=== PATIENT | female | born 1950 | race Caucasian/White ===

== ENCOUNTER → 2016-07-28 | Outpatient (CLI) | payer OTHER ==
[~2016-07-28] MED LIST: LIPITOR40 MG PO; VITAMIN D32000 UNI1 PO
== END | disposition home or self-care (01) ==
LOC: AMB 13:30
DX: C18.4 Malignant neoplasm of transverse colon (principal); Z80.0 Family history of malignant neoplasm of digestive organs; J44.9 Chronic obstructive pulmonary disease, unspecified; E78.5 Hyperlipidemia, unspecified
CPT/HCPCS: 86850; 86900; 86901; 99213

== ENCOUNTER 2016-07-29 08:06 | Inpatient (IN) | payer OTHER ==
[~2016-07-29] VITALS: Ht 154.9 cm; Wt 71.5 kg
[2016-07-29 08:53] VITALS: BP 132/75
[2016-07-29 14:13] VITALS: BP 138/70
[2016-07-29 16:26] VITALS: BP 116/67
[2016-07-29 17:52] VITALS: BP 116/67
[2016-07-29 19:38] VITALS: BP 128/70
[2016-07-29 23:43] VITALS: BP 121/68
[2016-07-30 04:04] VITALS: BP 113/59
[2016-07-30 07:35] VITALS: BP 120/65
[2016-07-30 07:39] LABS: HEMATOCRIT 31.1 % (36.0-46.0); MCH 28.7 PG (29.0-34.0); MCHC 32.8 G/DL (30.0-36.0); MCV 87.6 FL (83-99); MEAN PLAT.VOLUME 10.8 uM^3 (9.5-12.4); PLATELET COUNT 163 K/uL (156-360); RBC DIS.WIDTH-CV 12.9 % (11.8-14.6); RBC DIS.WIDTH-SD 41.1 % (39-53)
[2016-07-30 07:55] LABS: ANION GAP 6 MEQ/L (2-14); CHLORIDE 107 MEQ/L (99-109); GFR ESTIMATE (CALCULATED) > 59 mL/min/; GLUCOSE 164 mg/dL (70-99); MAGNESIUM 1.6 mg/dl (1.3-2.7); POTASSIUM 3.7 MEQ/L (3.7-5.4); SAMPLE HEMOLYSIS CHECK 0; SAMPLE ICTERIC CHECK 0; SAMPLE LIPEMIA CHECK 0; SODIUM 140 MEQ/L (136-147); UREA NITROGEN (BUN) 7 mg/dL (9-23)
[2016-07-30 08:04] LABS: RED BLOOD COUNT 3.55 M/uL (3.80-5.20); WHITE BLOOD COUNT 8.2 K/uL (4.1-10.2)
[2016-07-30 11:20] VITALS: BP 120/58
[2016-07-30 16:25] VITALS: BP 121/70
[2016-07-30 19:28] VITALS: BP 112/60
[2016-07-30 23:04] VITALS: BP 116/74
[2016-07-31 03:18] VITALS: BP 109/58
[2016-07-31 06:58] LABS: HEMATOCRIT 31.4 % (36.0-46.0); MCH 28.6 PG (29.0-34.0); MCHC 32.5 G/DL (30.0-36.0); MEAN PLAT.VOLUME 11.2 uM^3 (9.5-12.4); PLATELET COUNT 160 K/uL (156-360); RBC DIS.WIDTH-CV 12.9 % (11.8-14.6); RED BLOOD COUNT 3.57 M/uL (3.80-5.20); WHITE BLOOD COUNT 6.8 K/uL (4.1-10.2)
[2016-07-31 07:22] VITALS: BP 124/80
[2016-07-31 07:33] LABS: ANION GAP 6 MEQ/L (2-14); CHLORIDE 110 MEQ/L (99-109); GFR ESTIMATE (CALCULATED) > 59 mL/min/; MAGNESIUM 1.6 mg/dl (1.3-2.7); POTASSIUM 3.9 MEQ/L (3.7-5.4); SAMPLE HEMOLYSIS CHECK 0; SAMPLE ICTERIC CHECK 0; SAMPLE LIPEMIA CHECK 0; SODIUM 141 MEQ/L (136-147); UREA NITROGEN (BUN) 5 mg/dL (9-23)
[2016-07-31 07:39] LABS: GLUCOSE 115 mg/dL (70-99)
[2016-07-31 17:04] VITALS: BP 150/95
[2016-07-31 23:30] VITALS: BP 135/75
[2016-08-01 07:18] VITALS: BP 122/69
[2016-08-01 08:44] LABS: HEMATOCRIT 31.3 % (36.0-46.0); MCH 28.6 PG (29.0-34.0); MCHC 32.9 G/DL (30.0-36.0); MCV 86.9 FL (83-99); MEAN PLAT.VOLUME 10.8 uM^3 (9.5-12.4); PLATELET COUNT 163 K/uL (156-360); RBC DIS.WIDTH-CV 12.8 % (11.8-14.6); RBC DIS.WIDTH-SD 40.6 % (39-53); WHITE BLOOD COUNT 5.9 K/uL (4.1-10.2)
[2016-08-01 09:10] LABS: ANION GAP 7 MEQ/L (2-14); CHLORIDE 111 MEQ/L (99-109); GFR ESTIMATE (CALCULATED) > 59 mL/min/; GLUCOSE 100 mg/dL (70-99); POTASSIUM 3.7 MEQ/L (3.7-5.4); SAMPLE HEMOLYSIS CHECK 0; SAMPLE ICTERIC CHECK 0; SAMPLE LIPEMIA CHECK 0; SODIUM 142 MEQ/L (136-147); UREA NITROGEN (BUN) 6 mg/dL (9-23)
[2016-08-01 09:11] LABS: MAGNESIUM 2.2 mg/dl (1.3-2.7)
[2016-08-01 11:25] VITALS: BP 135/76
[2016-08-01 15:56] VITALS: BP 159/86
[2016-08-01 23:50] VITALS: BP 133/90
[2016-08-02 07:14] LABS: MCH 28.7 PG (29.0-34.0); MCHC 33.2 G/DL (30.0-36.0); MCV 86.4 FL (83-99); MEAN PLAT.VOLUME 11.7 uM^3 (9.5-12.4); PLATELET COUNT 177 K/uL (156-360); RBC DIS.WIDTH-CV 12.5 % (11.8-14.6); RBC DIS.WIDTH-SD 39.7 % (39-53); RED BLOOD COUNT 3.59 M/uL (3.80-5.20); WHITE BLOOD COUNT 4.9 K/uL (4.1-10.2)
[2016-08-02 07:38] LABS: ANION GAP 9 MEQ/L (2-14); CHLORIDE 108 MEQ/L (99-109); GFR ESTIMATE (CALCULATED) > 59 mL/min/; GLUCOSE 82 mg/dL (70-99); POTASSIUM 3.7 MEQ/L (3.7-5.4); SAMPLE HEMOLYSIS CHECK 0; SAMPLE ICTERIC CHECK 0; SAMPLE LIPEMIA CHECK 0; SODIUM 141 MEQ/L (136-147); UREA NITROGEN (BUN) 5 mg/dL (9-23)
[2016-08-02 08:37] VITALS: BP 157/74
== END 2016-08-02 12:40 | disposition home or self-care (01) | DRG 331 ==
LOC: 2EAST 08:06 → SDC 13:59 → EDSTATUS 14:02 → 2SOUTH 14:12 → 2EAST 08-02 12:40
PROVIDERS: Physician Assistant; Surgery
PROC: 0DTF0ZZ Resection of Right Large Intestine, Open Approach (ICD-10-PCS; principal; 2016-07-31)
DX: C18.3 Malignant neoplasm of hepatic flexure (principal); J44.9 Chronic obstructive pulmonary disease, unspecified; E83.39 Other disorders of phosphorus metabolism; E78.5 Hyperlipidemia, unspecified
CPT/HCPCS: 36415; 80048; 80053; 82378; 82565; 83735; 84100; 84520; 85025; 85027; 88309; 94799; J1170; J1335; J1650; J1885; J2250; J2405; J2710; J2765; J3010; J3475; J7050; J7120; P9045